=== PATIENT | female | born 1975 | race Caucasian/White ===

== ENCOUNTER 2019-06-19 10:57 | Outpatient (CLI) | payer OTHER, SELFPAY ==
[2019-06-21 12:48] LABS: FSH 149.9 mIU/mL (***)
== END 2019-06-19 10:58 | disposition home or self-care (01) ==
LOC: ANHLAB 11:00
PROVIDERS: Visit Provider Obstetrics & Gynecology
DX: Z78.0 Asymptomatic menopausal state (principal); N91.2 Amenorrhea, unspecified
CPT/HCPCS: 36415; 83001; 83002; 84443

== ENCOUNTER → 2019-07-24 10:27 | Outpatient (CLI) | payer OTHER, SELFPAY ==
--- NOTE | ~2019-07-24 | MM_ITS ---
EXAMINATION: MM screening edinson BI w re HISTORY: Screening mammogram TECHNIQUE: Craniocaudal and mediolateral oblique 3-D tomosynthesis images were obtained and synthetic 2-D images were generated. CAD analysis was submitted and interpreted. COMPARISON: 07/11/2018 BREAST PARENCHYMAL COMPOSITION: The breasts are heterogeneously dense, which may obscure small masses . FINDINGS: There is focal asymmetry superiorly in the left breast on MLO view. The right breast is sta ble without evidence for malignancy. IMPRESSION: 1. Focal left breast asymmetry superiorly. 2. Additional mammographic views and possible breast ultrasound are recommended. BI-RADS Category 0: Incomplete: Needs additional imaging evaluation. Reviewed, dictated and finalized at location A. IMPRESSION: 1. Focal left breast asymmetry superiorly. 2. Additional mammographic views and possible breast ultrasound are recommended . BI-RADS Category 0: Incomplete: Needs additional imaging evaluation.
== END ==
PROVIDERS: PCP Physician Assistant; Visit Provider Obstetrics & Gynecology
DX: Z12.31 Encounter for screening mammogram for malignant neoplasm of breast (principal); R92.8 Other abnormal and inconclusive findings on diagnostic imaging of breast
CPT/HCPCS: 77063; 77067

== ENCOUNTER → 2019-08-09 08:36 | Outpatient (CLI) | payer OTHER, SELFPAY ==
--- NOTE | ~2019-08-09 | MMUS_ITS ---
EXAMINATION: MM diagnostic mammo unilat LT, US breast LT complete HISTORY: Focal asymmetry reported in superior left breast on 07/24/2019 screening MLO view TECHNIQUE: Additional 3-D tomosynthesis images of the left breast were performed and synthetic 2-D im ages were generated. CAD analysis was submitted and interpreted. High resolution complete left breast ultrasound was performed. COMPARISON: 07/24/2019 bilateral digital screening mammogram BREAST PARENCHYMAL COMPOSITION: The breasts are heterogeneously dense, which may obscure small masses . FINDINGS: MAMMOGRAPHIC FINDINGS: No reproducible mass or architectural distortion, malignant calcification, skin thickening or retract ion of the left breast is evident. ULTRASOUND: There is no evidence of focal abnormal solid or cystic lesion or abnormal shadowing of the left breas t. IMPRESSION: 1. No mammographic evidence of malignancy 2. Routine annual mammographic screening is recommended BI-RADS Category 1: Negative Reviewed, dictated and finalized at location A. IMPRESSION: 1. No mammographic evidence of malignancy 2. Routine annual mammographic screening is recommended BI-RADS Category 1: Negative
== END ==
PROVIDERS: PCP Physician Assistant; Visit Provider Obstetrics & Gynecology
DX: R92.2 Inconclusive mammogram (principal)
CPT/HCPCS: 76641; 77065

== ENCOUNTER 2020-07-26 19:31 | Emergency (ER) | payer OTHER, SELFPAY ==
--- NOTE | 2020-07-26 19:44 | ED.FEMALEGU ---
HPI - Female Genitourinary General Chief complaint: Urogenital-Female Stated complaint: UTI Time Seen by Provider: 07/26/20 19:45 Source: patient and RN notes reviewed Mode of arrival: ambulatory Limitations: no limitations History of Present Illness HPI Narrative: 44-year-old female presents to the [facility] with complaints of frequency, urgency, burning that started this morning. Reports suprapubic abdominal pressure and spasming at the end of emptying her bladder. States it never feels like her bladder gets completely empty. No CVA tenderness. No chest pain. No generalized abdominal pain. No shortness of breath. Denies fevers. Related Data Allergies Allergy/AdvReac Type Severity Reaction Status Date / Time PROMETHAZINE HCL AdvReac Unknown JITTERY Uncoded 07/26/20 19:42 Review of Systems Review of Systems: Narrative: CONSTITUTIONAL: Denies fever, chills, or sweats. CARDIOVASCULAR: Denies chest pain, palpitations, or edema. RESPIRATORY: Denies cough or dyspnea. GASTROINTESTINAL: Denies abdominal pain, nausea, vomiting, or diarrhea. Reports suprapubic abdominal pressure GENITOURINARY: Reports frequency, urgency, burning with urination SKIN: Denies rash or itching. MUSCULOSKELETAL: Denies back pain, joint pain, or myalgia. NEUROLOGIC: Denies headache, numbness, or weakness. PSYCHIATRIC: Denies anxiety or depression. All other systems reviewed are negative, except as documented in HPI. PMFSH Comments At the time of my signature, I reviewed and agree with the nursing past medical, surgical, social, and family history. There is no relevant family history pertinent to the patient complaint. Exam Narrative: Exam Narrative: GENERAL: This is a well-nourished, well-developed patient, in no apparent distress. HEAD: normocephalic, atraumatic. EYES: PERRL. Sclera clear/white. Vision is grossly intact. EARS: External ears normal CARDIOVASCULAR: Regular rate and rhythm without murmurs, gallops, or rubs. RESPIRATORY: Clear to auscultation. Breath sounds equal bilaterally. No wheezes, rales, or rhonchi. GASTROINTESTINAL: Abdomen soft, non-tender, nondistended. SKIN: warm, intact with no suspicious lesions or rash, good texture and turgor. NEURO: awake, alert, and oriented to person, place and time. There were no obvious focal neurologic abnormalities. BACK: Nontender without deformity. No CVA tenderness. Course Vital Signs Vital signs: Vital Signs Temperature 97.9 F 07/26/20 19:48 Pulse Rate 71 07/26/20 19:48 Respiratory Rate 16 07/26/20 19:48 Blood Pressure 140/71 07/26/20 19:48 Pulse Oximetry 100 07/26/20 19:48 Temperature 97.9 F 07/26/20 19:48 Pulse Rate 71 07/26/20 19:48 Respiratory Rate 16 07/26/20 19:48 Blood Pressure 140/71 07/26/20 19:48 Pulse Oximetry 100 07/26/20 19:48 Reviewed MDM - Female Genitourinary MDM Narrative Medical decision making narrative: Discharge instructions reviewed with patient, as well as provided in writing per nursing staff. The instructions also include specific and strict return/GO TO THE ER as well as f/u information. All questions have been answered, and the patient deny any further questions with discharge and discharge plan. Differential Diagnosis Differential diagnosis: Likely urinary tract infection and cystitis Lab Data Labs: Urine Glucose Negative Reference Range: Negative Urine Bilirubin Negative Reference Range: Negative Urine Ketone Negative Reference Range: Negative Urine Specific [place] 1.020 Reference Range:1.001-1.035 Urine Blood 2+ Reference Range: Negative * *
[2020-07-26 19:48] VITALS: BP 140/71; PULSE 71; RESP 16; TEMP 36.6; O2SAT 100
== END 2020-07-26 19:57 | disposition home or self-care (01) ==
PROVIDERS: Emergency Provider Nurse Practitioner; PCP Physician Assistant
DX: N30.01 Acute cystitis with hematuria (principal)
CPT/HCPCS: 81003; 87077; 87086; 87088; 87186; 99213; G0463

== ENCOUNTER → 2020-08-21 17:07 | Outpatient (CLI) | payer OTHER, SELFPAY ==
--- NOTE | ~2020-08-21 | MM_ITS ---
EXAMINATION: MM screening edinson BI w re HISTORY: Screening mammogram TECHNIQUE: Craniocaudal and mediolateral oblique 3-D tomosynthesis images were obtained and synthetic 2-D images were generated. Bilateral rotated lateral CC views. .CAD analysis was submitted and inter preted. COMPARISON: 08/09/2019 diagnostic left digital mammogram and left complete breast ultrasound 07/24/2019, 07/11/2018 bilateral digital screening mammogram examinations BREAST PARENCHYMAL COMPOSITION: The breasts are heterogeneously dense, which may obscure small masses . FINDINGS: There is no evidence of suspicious mass, calcification, or architectural distortion to sugg est malignancy in either breast. There has been no suspicious interval change. IMPRESSION: 1. No mammographic evidence of malignancy. 2. Recommend routine screening mammography in one year. BI-RADS Category 1: Negative Reviewed, dictated and finalized at location A.
== END ==
PROVIDERS: PCP Physician Assistant; Visit Provider Obstetrics & Gynecology
DX: Z12.31 Encounter for screening mammogram for malignant neoplasm of breast (principal)
CPT/HCPCS: 77063; 77067

== ENCOUNTER 2021-08-26 09:14 | Outpatient (CLI) | payer OTHER, SELFPAY ==
[2021-08-29 08:22] LABS: FSH 148.1 mIU/mL (***); LH 55.1 mIU/mL (***)
== END 2021-08-26 09:15 | disposition home or self-care (01) ==
LOC: ANHLAB 09:21
PROVIDERS: PCP Physician Assistant; Visit Provider Physician Assistant
DX: N81.2 Incomplete uterovaginal prolapse (principal)
CPT/HCPCS: 36415; 83001; 83002

== ENCOUNTER 2021-09-30 09:45 | Outpatient (CLI) | payer OTHER, SELFPAY ==
--- NOTE | ~2021-09-30 | MM_ITS ---
EXAMINATION: MM screening edinson BI w re HISTORY: Screening mammogram TECHNIQUE: Craniocaudal and mediolateral oblique 3-D tomosynthesis images were obtained and synthetic bilateral rotated lateral CC views. Bilateral rotated lateral CC views. 2-D images were generated. C AD analysis was submitted and interpreted. COMPARISON: 08/21/2020 bilateral screening mammogram /07/2019 diagnostic left mammogram and complete left breast ultrasound 07/24/2019, 3 subsequent 2011 bilateral screening mammogram examinations BREAST PARENCHYMAL COMPOSITION: The breasts are heterogeneously dense, which may obscure small masses . FINDINGS: There is no evidence of suspicious mass, calcification, or architectural distortion to sugg est malignancy in either breast. There has been no suspicious interval change. IMPRESSION: 1. No mammographic evidence of malignancy. 2. Recommend routine screening mammography in one year. BI-RADS Category 1: Negative Reviewed, dictated and finalized at location A.
== END 2021-09-30 09:46 | disposition home or self-care (01) ==
PROVIDERS: PCP Physician Assistant; Visit Provider Physician Assistant
DX: Z12.31 Encounter for screening mammogram for malignant neoplasm of breast (principal)
CPT/HCPCS: 77063; 77067

== ENCOUNTER 2021-10-26 14:53 | Outpatient (CLI) | payer OTHER, SELFPAY ==
--- NOTE | ~2021-10-26 | US_ITS ---
EXAMINATION: US pelvic complete DATE: 10/26/2021 15:54 INDICATION: Postmenopausal bleeding. TECHNIQUE: Multiple transabdominal sonographic images of the pelvis were obtained. COMPARISON: None. FINDINGS: The uterus measures 5.7 x 2.4 x 4.0 cm. There is no free fluid in the pelvis. The endometrial complex measures 3 mm in thickness. The right ovary measures 1.9 x 1.3 x 1.6 cm. The left ovary measures 2.5 x 2.1 x 1.3 cm. There is normal vascular flow in the ovaries. IMPRESSION: 1. Normal pelvis. Reviewed, dictated and finalized at location A. IMPRESSION: 1. Normal pelvis.
== END 2021-10-26 14:54 | disposition home or self-care (01) ==
PROVIDERS: PCP Physician Assistant; Visit Provider Physician Assistant
DX: N95.0 Postmenopausal bleeding (principal)
CPT/HCPCS: 76856

== ENCOUNTER 2022-05-20 14:57 | Outpatient (CLI) | payer OTHER, SELFPAY ==
[2022-05-20 15:30] LABS: Basophils Percent Auto 0.4 % (0.2-1.2); Eosinophils Absolute Auto 0.1 K/mm3 (0-0.3); Eosinophils Percent Auto 2.2 % (0-4.4); Hematocrit 41.3 % (37.0-47.0); Hemoglobin 13.4 g/dL (12.0-15.0); Immature Granulocyte Absolute 0.01 K/mm3 (0.00-0.031); Immature Granulocyte Percent A 0.2 % (0-0.5); Lymphocytes Absolute Auto 1.37 K/mm3 (0.9-3.2); Lymphocytes Percent Auto 29.7 % (18.3-44.2); Mean Corpuscular HGB Conc 32.4 g/dl (32-36); Mean Corpuscular Hemoglobin 29.3 pg (26-34); Mean Corpuscular Volume 90.2 fl (80-100); Mean Platelet Volume 11.3 fl (7.4-10.4); Monocytes Absolute Auto 0.4 K/mm3 (0.1-0.6); Monocytes Percent Auto 9.1 % (2.6-8.5); Neutrophils Absolute Auto 2.7 K/mm3 (1.3-6.7); Neutrophils Percent Auto 58.4 % (45.5-73.1); Platelet Count Result 234 k/mm3 (150-375); Red Blood Count 4.58 M/mm3 (4.2-5.4); Red Cell Distribution Width 12.5 % (11.5-14.5); White Blood Count 4.6 K/mm3 (4.5-10.0)
[2022-05-22 05:26] LABS: Alanine Aminotransferase 23 U/L (6-35); Albumin Level 4.9 g/dL (3.5-5.1); Alkaline Phosphatase 74 U/L (38-126); Anion Gap 5 mmol/L (8-16); Aspartate Amino Transferase 29 U/L (14-36); Bilirubin,Total 0.4 mg/dL (0.2-1.3); Blood Urea Nitrogen 13 mg/dL (7-17); Calcium 8.8 mg/dL (8.4-10.2); Carbon Dioxide 30 mmol/L (22-30); Chloride 102 mmol/L (98-107); Cholesterol 238 mg/dL (0-200); Estimated Glomerular Filt Rate > 60; Glucose 101 mg/dL (65-110); HDL Direct 48 mg/dL; Potassium 4.1 mmol/L (3.4-5.0); Sodium 137 mmol/L (137-145); Triglycerides 98 mg/dL (<150)
[2022-05-22 05:38] LABS: LDL Cholesterol Direct 128 mg/dL
[2022-05-22 06:01] LABS: Thyroid Stimulating Hormone 0.891 uIU/mL (0.465-4.680)
[2022-05-24 09:11] LABS: Tissue Transglutaminase IgA Ab <1.0 U/mL (<15.0)
[2022-06-02 15:23] LABS: Gliadin Gluten IgA <1.0 U/mL
== END 2022-05-20 14:58 | disposition home or self-care (01) ==
PROVIDERS: PCP Physician Assistant; Visit Provider Physician Assistant
DX: R19.7 Diarrhea, unspecified (principal); E78.2 Mixed hyperlipidemia; R53.83 Other fatigue
CPT/HCPCS: 36415; 80053; 80061; 83516; 84443; 85025

== ENCOUNTER 2022-11-21 03:26 | Day surgery (SDC) | payer OTHER, SELFPAY ==
[2022-11-10 13:27] VITALS: BMI 26.9
[2022-11-21 07:43] VITALS: BP 116/72; PULSE 84; RESP 18; TEMP 36.6; O2SAT 100; BMI 26.2
[2022-11-21] MEDS: LACTATED RINGERS 1,000 ML 150 ML IV CONT (08:03)
--- NOTE | 2022-11-21 08:33 | WPDANESEPPF ---
Anes - Initial Pre Proc Eval Procedure: Operation Date: 11/21/22 09:00 Proposed Procedures p Screening Colonoscopy - Geoffrey Larsen MD Date/Time: 11/21/22 08:33 Surgeon: Geoffrey Larsen MD Pre Op Diagnosis: neoplasm screening Patient Data Age: 46 Gender: F Height: 1.7 m Weight: 76.1 kg Last Vital Signs Temp 97.8 F 11/21/22 07:43 Pulse 84 11/21/22 07:43 Resp 18 11/21/22 07:43 BP 116/72 11/21/22 07:43 Pulse Ox 100 11/21/22 07:43 O2 Del Method Room Air 11/21/22 07:43 Allergies Allergy/AdvReac Type Severity Reaction Status Date / Time PROMETHAZINE HCL AdvReac Unknown JITTERY Uncoded 11/21/22 07:43 Home Medications Medication Instructions Recorded Confirmed Type coenzyme Q10 75 mg capsule (Ultra 75 mg PO DAILY 11/10/22 11/10/22 History CoQ10) [id number] 200 1 tablet PO DAILY 11/10/22 11/10/22 History mg-biotin 450 mcg-vit D3 400 unit-FA tablet Patient hx anesthesia problems: none Family hx anesthesia problems: none Results Review: All pre-operative results and documents have been reviewed as part of the pre-operative evaluation. [facility] Social History Social History Smoking status: Never smoker Alcohol intake: never Substance use type: does not use Living arrangements: with family Spiritual care concerns: No Anes - Eval Final PreProcedure Day of Procedure 11/21/22 08:33 Patient weight: normal Heart: regular rate and rhythm Lungs: clear to auscultation Airway: Mallampati scale class II Neurological: alert and oriented Last oral intake: >/= 8 hours ASA classification: II Emergent: no Anesthetic plan: proceed Anesthesia type and monitoring: general GIVS and standard monitoring Results Review: All pre-operative results and documents have been reviewed as part of the pre-operative evaluation. Informed Consent: The patient's anesthetic plan and its attendant risks and benefits were discussed with the patient/family/POA. Questions were solicited and answers provided to the satisfaction of the patient/family/POA.
--- NOTE | 2022-11-21 08:37 | PM.HPGS ---
History of Present Illness History of Present Illness Consent: Risks, benefits, and alternatives have been discussed and questions answered. Patient agrees to proceed with procedure. Chief complaint: neoplasm screening Narrative: Sharon Martines is a 46 year old female here for first screening colonoscopy Review of Systems Constitutional: Constitutional: Denies headache(s) and Denies weakness Eyes: Eyes: Denies blurry vision ENT: Reports Normal hearing present, Denies headache(s) and Denies neck pain Cardiovascular: Cardiovascular: Denies chest pain and Denies dyspnea Respiratory: Respiratory: Denies dyspnea Gastrointestinal: Gastrointestinal: Reports no additional gastrointestinal complaints Genitourinary: Genitourinary: Denies dysuria Musculoskeletal: Musculoskeletal: Denies neck pain Integumentary/Breasts: Skin/Breast: Denies dry skin Neurologic: Reports Normal hearing present, Denies headache(s) and Denies weakness Psychiatric: Psychiatric: Denies anxiety Endocrine: Endocrine: Denies change in body appearance Hematologic/Lymphatic: Hematologic/Lymphatic: Denies easy bleeding Allergic/Immunologic: Allergic/Immunologic: Denies urticaria [facility] Past Medical History Medical History (Updated 11/21/22 @ 08:38 by Geoffrey Larsen MD) Colon cancer screening Social History Social History Smoking status: Never smoker Alcohol intake: never Substance use type: does not use Living arrangements: with family Spiritual care concerns: No Meds Home Medications and Allergies Home Medications Medication Instructions Recorded Confirmed Type coenzyme Q10 75 mg capsule (Ultra 75 mg PO DAILY 11/10/22 11/10/22 History CoQ10) [id number]-zugg-vyhlzcl 200 1 tablet PO DAILY 11/10/22 11/10/22 History mg-biotin 450 mcg-vit D3 400 unit-FA tablet Allergies Allergy/AdvReac Type Severity Reaction Status Date / Time PROMETHAZINE HCL AdvReac Unknown JITTERY Uncoded 11/21/22 07:43 Vital Signs Vital Signs - 24 hr 11/21/22 07:43 Temperature 97.8 F Pulse Rate 84 Respiratory Rate 18 Blood Pressure 116/72 Pulse Oximetry 100 Oxygen Delivery Room Air Exam Const: General: comfortable and no acute distress HENMT: Face/Nose/Sinus: Normal nares present Eyes: General: appearance normal, both eyes and all related structures Neck: Neck: no JVD Resp: Auscultation: clear to auscultation bilaterally Cardio: Rate: regular rate Rhythm: regular rhythm GI: Inspection: non-distended GI Palp: Yes Soft to palpation Skin: General skin exam: normal color Neuro: General: gait normal Speech: normal speech Extrem: General: normal to inspection Psych: Mental Status: mental status grossly normal Assessment and Plan Assessment and plan (1) Colon cancer screening: Code(s): Z12.11 - Encounter for screening for malignant neoplasm of colon Status: Acute Assessment and Plan: colonoscopy
[2022-11-21 08:58] VITALS: BP 96/57; PULSE 82; RESP 17; O2SAT 100
[2022-11-21 09:08] VITALS: BP 103/58; PULSE 74; RESP 17; O2SAT 99
[2022-11-21 09:18] VITALS: BP 102/66; PULSE 71; RESP 17; O2SAT 99
== END 2022-11-21 09:30 | disposition home or self-care (01) ==
PROVIDERS: PCP Physician Assistant; Visit Provider Internal Medicine Gastroenterology
PROC: 0DJD8ZZ Inspection of Lower Intestinal Tract, Via Natural or Artificial Opening Endoscopic (ICD-10-PCS; CPT 45378; principal; 2022-11-21 09:00)
DX: Z12.11 Encounter for screening for malignant neoplasm of colon (principal)
CPT/HCPCS: 45378; J2704; J7120

== ENCOUNTER 2022-12-22 13:47 | Outpatient (CLI) | payer OTHER, SELFPAY ==
--- NOTE | ~2022-12-22 | DEXA_ITS ---
Bone Density Report Name: HARIS HUNT Age: 46 Sex: Female Ethnicity: White Date of : 1975 Indication: postmenopausal; inflammatory bowel disease; Referring Provider: [email or web address] Study: Bone densitometry was performed. Exam Date: December 22, 2022 Accession number: [id number] Bone Density: Region BMD T-score Z-score Classification AP Spine(L1-L4) 0.836 -1.9 -1.4 Osteopenia Femoral Neck (Left) 0.701 -1.3 -0.9 Osteopenia Total Hip (Left) 0.825 -1.0 -0.6 Normal Femoral Neck (Right) 0.670 -1.6 -1.1 Osteopenia Total Hip (Right) 0.767 -1.4 -1.1 Osteopenia Total Hip Mean 0.796 -1.2 -0.9 Osteopenia World Health Organization criteria for BMD impression classify patients as: Normal (T-score at or above -1.0), Osteopenia (T-score between -1.0 and -2.5), or Osteoporosis (T-score at or below -2.5). 10-year Fracture Risk(1): Major Osteoporotic Fracture 3.5% Hip Fracture 0.3% Reported Risk Factors: [place] (), Neck BMD=0.670, BMI=26.9 (1) FRAX(R) Version 3.08. Fracture probability calculated for an untreated patient. Fracture probability may be lower if the patient has received treatment. Clinical Information Provided by Patient: Has used the following medications: Vitamin D, Calcium Has the following medical conditions: Inflammatory bowel diseases Patient maximum height was 67 Menopause Age: 45 Drinks caffeinated beverages Onset of menses at age 13 Number of children 2 Impression: The patient has low bone mass, based on the Total Spine T-score. The patient has an estimated ten-year risk of hip fracture of 0.3% and an estimated ten-year risk of major fracture of 3.5%, based on the WHO FRAX algorithm. Discussion: BONE DENSITY IS LOW AT ONE OR MORE SKELETAL SITES. This patient's lowest T-score is low at one or more skeletal sites. It meets the World Health Organization's (WHO) criteria for ?low bone mass? (T-score between -1.0 and -2.5). The patient's 10-year risk of fracture as calculated by FRAX is less than the threshold where pharmacological therapy is recommended by the National Osteoporosis Foundation (NOF). However, all treatment decisions require clinical judgment and consideration of individual patient factors, including patient preferences, comorbidities, previous drug use, risk factors not captured in the FRAX model (e.g., frailty, falls, vitamin D deficiency, increased bone turnover, interval significant decline in bone density) and possible under or overestimation of fracture risk by FRAX. The patient should follow a healthful lifestyle (good nutrition with adequate calcium and vitamin D, and appropriate weight-bearing exercise). Follow-Up: Consider repeating this study in 2 to 3 years to reassess this patient's status, or sooner if there is some new clinical indic
--- NOTE | ~2022-12-22 | MM_ITS ---
EXAMINATION: MM screening edinson BI w re HISTORY: Screening TECHNIQUE: Craniocaudal and mediolateral oblique 3-D tomosynthesis images were obtained and synthetic 2-D images were generated. CAD analysis was submitted and interpreted. COMPARISON: Comparison to multiple prior studies sequentially, with oldest reviewed study dated 10/2018. BREAST PARENCHYMAL COMPOSITION: The breasts are heterogeneously dense, which may obscure small masses . FINDINGS: There is no evidence of suspicious mass, calcification, or architectural distortion to sugg est malignancy in either breast. There has been no suspicious interval change. IMPRESSION: 1. No mammographic evidence of malignancy. 2. Recommend routine screening mammography in one year. BI-RADS Category 1: Negative Reviewed, dictated and finalized at location A.
== END 2022-12-22 13:48 | disposition home or self-care (01) ==
PROVIDERS: PCP Physician Assistant; Visit Provider Physician Assistant
DX: Z12.31 Encounter for screening mammogram for malignant neoplasm of breast (principal); Z87.39 Personal history of other diseases of the musculoskeletal system and connective tissue; Z78.0 Asymptomatic menopausal state; M85.88 Other specified disorders of bone density and structure, other site; M85.852 Other specified disorders of bone density and structure, left thigh; M85.851 Other specified disorders of bone density and structure, right thigh
CPT/HCPCS: 77063; 77067; 77080

== ENCOUNTER 2023-07-15 15:12 | Emergency (ER) | payer OTHER, SELFPAY ==
--- NOTE | ~2023-07-15 | XR_ITS ---
EXAMINATION: XR foot RT min 3V DATE: 07/15/2023 15:29 INDICATION: Right foot injury and pain. TECHNIQUE: 4 views of right foot were obtained. COMPARISON: None. FINDINGS: Bone alignment is normal. No fracture. 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 IMPRESSION: 1. No fracture. Reviewed, dictated and finalized at location E. 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 No fracture.
--- NOTE | 2023-07-15 15:17 | ED.LOWEXIN ---
HPI - Extremity Injury (Lower) General Chief Complaint: Extremity Injury, Lower Stated Complaint: Toe Pain Rt Foot Time Seen by Provider: 07/15/23 15:17 Source: patient Mode of arrival: ambulatory Limitations: no limitations History of Present Illness HPI Narrative: Patient is a 47-year-old female who presents with right middle toe pain for 2 weeks. Patient states she stubbed it on a wooden door and it is still painful, and has mild bruising. Patient still able walk normally. Denies any swelling, numbness or tingling. Related Data Home Medications Medication Instructions Recorded Confirmed coenzyme Q10 75 mg capsule (Ultra 75 mg PO DAILY 11/10/22 07/15/23 CoQ10) dhdxwznc-ndai-vdzcyzs 200 1 tablet PO DAILY 11/10/22 07/15/23 mg-biotin 450 mcg-vit D3 400 unit-FA tablet Allergies Allergy/AdvReac Type Severity Reaction Status Date / Time PROMETHAZINE HCL AdvReac Intermediate JITTERY Uncoded 07/15/23 15:17 Review of Systems Review of Systems: All systems reviewed & are unremarkable except as noted in HPI and below Constitutional: Constitutional: Denies body ache(s), Denies chills, Denies fatigue, Denies fever(s), Denies headache(s), Denies malaise and Denies weakness Eyes: Eyes: Denies blurry vision, Denies irritation and Denies loss of vision ENT: Denies otalgia, Denies headache(s), Denies nasal discharge, Denies sinus pain and Denies sore throat Cardiovascular: Cardiovascular: Denies chest pain, Denies irregular heart rhythm and Denies dyspnea Respiratory: Respiratory: Denies dyspnea Gastrointestinal: Gastrointestinal: Denies abdominal pain, Denies melena, Denies hematochezia, Denies diarrhea, Denies nausea and Denies vomiting Musculoskeletal: Musculoskeletal: Denies back pain, Denies myalgias and Reports arthralgias Integumentary/Breasts: Skin/Breast: Denies pruritus and Denies rash Neurologic: Denies headache(s), Denies loss of vision and Denies weakness Psychiatric: Psychiatric: Reports no additional psychiatric complaints Endocrine: Endocrine: Denies fatigue PMFSH Past Medical History Medical History Colon cancer screening Social History Social History Smoking status: Never smoker Alcohol intake: never Substance use type: does not use Living arrangements: with family Spiritual care concerns: No Comments At time of signature, agree with nursing past medical, surgical, social and family history. There is no relevant family history pertinent to the presenting complaint. Exam Const: General: cooperative, healthy appearing, comfortable, no acute distress and well nourished Nutritional Appearance: well nourished Orientation/consciousness: patient oriented x3 Limitations: no limitations HENMT: Head: normal to inspection, normocephalic and atraumatic Ears: hearing grossly normal bilaterally and external ears normal Face/Nose/Sinus: Normal external nose present, normal facial exam and face symmetric Face and sinus: normal facial exam and face symmetric Mouth: Yes lip normal Eyes: General: appearance normal, both eyes and all related structures Alignment and Position: alignment normal and position normal Periorbital: periorbital findings normal Eyelids: eyelids normal Pupils: Equal, round and reactive pupils present EOM: EOMs intact bilaterally Neck: Neck: normal visual inspection, full ROM and supple Chest: Chest palpation & inspection: normal inspection of the chest Resp: Effort & Inspection: normal respiratory effort and able to speak in complete sentences Auscultation: clear to auscultation bilaterally Cardio: Rate: regular rate Rhythm: regular rhythm Heart sounds: S1 normal heart sound present and S2 normal heart sound present GI: Inspection: normal to inspection Skin: General skin exam: normal color and no rashes or lesions noted Neuro: General: patie
[2023-07-15 15:20] VITALS: BP 129/81; PULSE 76; RESP 16; TEMP 36.6; O2SAT 100
== END 2023-07-15 15:53 | disposition home or self-care (01) ==
PROVIDERS: Emergency Provider Nurse Practitioner Family; PCP Physician Assistant
DX: S93.504A Unspecified sprain of right lesser toe(s), initial encounter (principal); W22.8XXA Striking against or struck by other objects, initial encounter
CPT/HCPCS: 73630; 99213; G0463

== ENCOUNTER 2023-09-05 08:19 | Outpatient (NON) | payer OTHER, SELFPAY ==
[2023-09-05 08:30] LABS: Alanine Aminotransferase 17 U/L (6-35); Albumin Level 4.6 g/dL (3.5-5.1); Alkaline Phosphatase 69 U/L (38-126); Anion Gap 6 mmol/L (4-12); Aspartate Amino Transferase 28 U/L (14-36); Bilirubin,Total 0.5 mg/dL (0.2-1.3); Blood Urea Nitrogen 19 mg/dL (7-17); Calcium 9.5 mg/dL (8.4-10.2); Carbon Dioxide 28 mmol/L (22-30); Chloride 105 mmol/L (98-107); Cholesterol 218 mg/dL (0-200); Estimated Glomerular Filt Rate > 60; Glucose 100 mg/dL (65-110); HDL Direct 44 mg/dL; Hemoglobin A1C 5.4 % (<5.7); LDL Cholesterol Direct 127 mg/dL; Sodium 139 mmol/L (137-145); Triglycerides 137 mg/dL (<150)
[2023-09-05 08:31] LABS: Basophils Percent Auto 0.2 % (0.2-1.2); Eosinophils Absolute Auto 0.1 K/mm3 (0-0.3); Eosinophils Percent Auto 3.2 % (0-4.4); Hematocrit 42.9 % (37.0-47.0); Hemoglobin 13.6 g/dL (12.0-15.0); Immature Granulocyte Absolute 0.01 K/mm3 (0.00-0.031); Immature Granulocyte Percent A 0.2 % (0-0.5); Lymphocytes Absolute Auto 1.46 K/mm3 (0.9-3.2); Lymphocytes Percent Auto 36.4 % (18.3-44.2); Mean Corpuscular HGB Conc 31.7 g/dl (32-36); Mean Corpuscular Volume 91.5 fl (80-100); Mean Platelet Volume 11.4 fl (7.4-10.4); Monocytes Absolute Auto 0.4 K/mm3 (0.1-0.6); Platelet Count Result 234 k/mm3 (150-375); Red Blood Count 4.69 M/mm3 (4.2-5.4); Red Cell Distribution Width 12.6 % (11.5-14.5)
[2023-09-05 09:10] LABS: Thyroid Stimulating Hormone 0.997 uIU/mL (0.465-4.680)
== END 2023-09-05 08:20 | disposition home or self-care (01) ==
LOC: ANHLAB 08:21
PROVIDERS: PCP Physician Assistant; Visit Provider Physician Assistant
DX: R53.83 Other fatigue (principal); E78.2 Mixed hyperlipidemia; Z13.1 Encounter for screening for diabetes mellitus
CPT/HCPCS: 36415; 80053; 80061; 82607; 83036; 84443; 85025

== ENCOUNTER 2023-11-10 11:17 | Outpatient (CLI) | payer OTHER, SELFPAY ==
[2023-11-10 11:32] LABS: Alanine Aminotransferase 20 U/L (6-35); Albumin Level 4.7 g/dL (3.5-5.1); Alkaline Phosphatase 71 U/L (38-126); Anion Gap 4 mmol/L (4-12); Aspartate Amino Transferase 30 U/L (14-36); Bilirubin,Total 0.5 mg/dL (0.2-1.3); Blood Urea Nitrogen 12 mg/dL (7-17); Calcium 9.2 mg/dL (8.4-10.2); Carbon Dioxide 30 mmol/L (22-30); Chloride 106 mmol/L (98-107); Estimated Glomerular Filt Rate > 60; Glucose 99 mg/dL (65-110); Potassium 4.1 mmol/L (3.4-5.0); Sodium 140 mmol/L (137-145)
== END 2023-11-10 11:18 | disposition home or self-care (01) ==
LOC: ANHLAB 11:21
PROVIDERS: PCP Physician Assistant; Visit Provider Physician Assistant
DX: R53.83 Other fatigue (principal)
CPT/HCPCS: 36415; 80053

== ENCOUNTER 2023-12-26 15:02 | Outpatient (CLI) | payer OTHER, SELFPAY ==
--- NOTE | ~2023-12-26 | MM_ITS ---
EXAMINATION: MM screening edinson BI w re HISTORY: Screening TECHNIQUE: Craniocaudal and mediolateral oblique 3-D tomosynthesis images were obtained and synthetic 2-D images were generated. CAD analysis was submitted and interpreted. COMPARISON: Comparison to multiple prior studies sequentially, with oldest reviewed study dated 10/2018. BREAST PARENCHYMAL COMPOSITION: Dense: The breasts are heterogeneously dense, which may obscure small masses FINDINGS: There is no evidence of suspicious mass, calcification, or architectural distortion to sugg est malignancy in either breast. There has been no suspicious interval change. IMPRESSION: 1. No mammographic evidence of malignancy. 2. Recommend routine screening mammography in one year. BI-RADS Category 1: Negative Reviewed, dictated and finalized at location B.
== END 2023-12-26 15:03 | disposition home or self-care (01) ==
LOC: ANHIMG 15:03
PROVIDERS: PCP Physician Assistant; Visit Provider Physician Assistant
DX: Z12.31 Encounter for screening mammogram for malignant neoplasm of breast (principal)
CPT/HCPCS: 77063; 77067

== ENCOUNTER 2024-12-31 13:46 | Outpatient (CLI) | payer OTHER, SELFPAY ==
--- NOTE | ~2024-12-31 | DEXA_ITS ---
Bone Density Report Name: HARIS HUNT Age: 49 Sex: Female Ethnicity: White Date of : 1975 Indication: postmenopausal; inflammatory bowel disease; Referring Provider: RADHA, GUIDO Study: Bone densitometry was performed. Exam Date: December 31, 2024 Accession number: [id number] Bone Density: Region BMD T-score Z-score Classification AP Spine(L1-L4) 0.785 -2.4 -1.8 Osteopenia Femoral Neck (Left) 0.672 -1.6 -1.0 Osteopenia Total Hip (Left) 0.792 -1.2 -0.8 Osteopenia Femoral Neck (Right) 0.639 -1.9 -1.3 Osteopenia Total Hip (Right) 0.738 -1.7 -1.3 Osteopenia Total Hip Mean 0.765 -1.5 -1.1 Osteopenia World Health Organization criteria for BMD impression classify patients as: Normal (T-score at or above -1.0), Osteopenia (T-score between -1.0 and -2.5), or Osteoporosis (T-score at or below -2.5). 10-year Fracture Risk(1): Major Osteoporotic Fracture 4.4% Hip Fracture 0.5% Reported Risk Factors: [place] (), Neck BMD=0.639, BMI=26.5 (1) FRAX(R) Version 3.08. Fracture probability calculated for an untreated patient. Fracture probability may be lower if the patient has received treatment. Clinical Information Provided by Patient: Has used the following medications: Vitamin D, Calcium Has the following medical conditions: Inflammatory bowel diseases Patient maximum height was 67 Menopause Age: 45 Does not regularly consume dairy products Drinks caffeinated beverages Onset of menses at age 13 Number of children 2 Impression: The patient has low bone mass, based on the Total Spine T-score. The patient has an estimated ten-year risk of hip fracture of 0.5% and an estimated ten-year risk of major fracture of 4.4%, based on the WHO FRAX algorithm. Discussion: BONE DENSITY IS LOW AT ONE OR MORE SKELETAL SITES. This patient's lowest T-score is low at one or more skeletal sites. It meets the World Health Organization's (WHO) criteria for ?low bone mass? (T-score between -1.0 and -2.5). The patient's 10-year risk of fracture as calculated by FRAX is less than the threshold where pharmacological therapy is recommended by the National Osteoporosis Foundation (NOF). However, all treatment decisions require clinical judgment and consideration of individual patient factors, including patient preferences, comorbidities, previous drug use, risk factors not captured in the FRAX model (e.g., frailty, falls, vitamin D deficiency, increased bone turnover, interval significant decline in bone density) and possible under or overestimation of fracture risk by FRAX. The patient should follow a healthful lifestyle (good nutrition with adequate calcium and vitamin D, and appropriate weight-bearing exercise). Follow-Up: Consider repeating this study in 2 to 3 years to reassess this patient's status, or sooner if there is some new clinical indication. Reported by: ANAIS on 12/31/2024 2:31:00 PM. Reviewed, dictated and finalized at location A.
--- OUTSIDE RECORDS SUMMARY | 2024-12-31 13:52 | XMS_ITS | Clinical Summary ---
Author Organization [facility] [address] Address [address] [place] [address] Care Team Providers Care Media Producer Name Role Phone Angela Grissom Primary Care Provider +1- [phone] Allergies Active Allergy Reactions Criticality Noted Date Comments Promethazine Agitation Low 07/31/2019 Medications coenzyme Q10 200 mg capsule Take 1 capsule (200 mg total) by mouth daily Active cholecalciferol (VITAMIN D-3) 5,000 unit capsule Take 1 capsule (5,000 Units total) by mouth daily Active rosuvastatin (CRESTOR) 10 mg tabletIndications:M ixed hyperlipidemia TAKE 1 TABLET(10 MG) BY MOUTH DAILY 90 tablet 1 4 Active calcium carbonate (OS-BRIAN) 650 mg (260 mg elemental) tablet,chewable 260 mg Acti ve venlafaxine XR (EFFEXOR-XR) 37.5 mg 24 hr capsule Take 1 capsule (37.5 mg total) by mouth daily 30 capsule 5 12/13/19 26 Active dicyclomine (BENTYL) 10 mg capsule Take 1 capsule (10 mg total) by mouth 4 (four) times a day before meals and nightly 60 capsule 5 Active venlafaxine XR (EFFEXOR-XR) 75 mg 24 hr capsule Take 1 capsule (75 mg total) by mouth daily Take with food. Start after the 37.5 dose/rx 90 capsule 5 Active Active Problems Problem Noted Date Diagnosed Date Family history of pulmonary embolism 12/12/2024 Overview (12/12/2024): Father has Factor V Leiden and had multiple DVT/PE at 70yo. Vasomotor symptoms due to menopause 12/12/2024 Frequent headaches 09/02/2024 History of loop electrical excision procedure (L EEP) 08/31/2023 Overview (08/31/2023): [address] Cruz Assessment & Plan (08/31/2023 8:14 AM CDT): History of LEEP by Dr. Cruz in 2013. Unsure of the pathology. Recommend continuing to repack every couple of years Osteopenia of ankle 10/20/2022 Overview (10/20/2022): Had Health fair screening and ankle was (-2.0) Colon cancer screening 08/29/2022 Assessment & Plan (08/29/2022 6:40 PM CDT): Discussed colon cancer screening options. Prefers colonoscopy done at [employer] as she is employed there. Referral placed to Dr. Lyle Howard Irritable bowel syndrome with diarrhea Assessment & Plan (08/29/2022 6:40 PM CDT): Patient started doing FODMAP diet last year indefinitely can see improvement in her symptoms. Dairy cold oatmeal some yogurts are definitely triggers she continues to identify others and if she avoids them she does pretty well. Wants to continue to monitor Abdominal bloating 06/06/2022 Assessment & Plan (06/06/2022 9:21 AM FULL TIME PARAMEDIC): Persistent abdominal bloating gas and sometimes pain. This comes and goes. Symptoms seem most consistent with an IBS. Discussed FODMAP diet at length and provided handouts. Encouraged to try to identify her food triggers and avoid them to see if her symptoms resolve or improve. If they worsen can always consider referral to GI. She is refusing colonoscopy at this point for colon cancer screening. Will discuss at her next visit. BMI 26.0-26.9,adult 08/26/2021 Assessment & Plan (12/12/2024 7:16 AM CDT): Weight/BMI is in healthy range. Continue healthy lifestyle to maintain. Assessment & Plan (09/02/2024 7:08 AM CDT): Weight/BMI is in healthy range. Continue healthy lifestyle to maintain. Assessment & Plan (08/31/2023 8:15 AM CDT): Weight/BMI is in healthy range. Continue healthy lifestyle to maintain. Assessment & Plan (08/29/2022 7:22 AM CDT): Weight/BMI is in healthy range. Continue healthy lifestyle to maintain. Assessment & Plan (06/06/2022 9:22 AM FULL TIME PARAMEDIC): Weight/BMI is in healthy range. Continue healthy lifestyle to maintain. Assessment & Plan (08/26/2021 7:56 AM CDT): Weight/BMI is in healthy range. Continue healthy lifestyle to maintain. Mixed hyperlipidemia 08/26/2021 Assessment & Plan (08/31/2023 8:15 AM CDT): Encouraged patient to follow low fat/low chol diet like the Mediterranean diet. Increase good fats in the diet. Increase exercise. Monitor labs as needed. Assessment & Plan (06/06/2022 9:20 AM FULL TIME PARAMEDIC): Encouraged patient to follow low fat/low chol diet like the Mediterranean diet. Increase good fats in the diet. Increase exercise. Monitor labs as needed. Discussed starting a statin. She is already on Co Q10. Reassess labs again in a year and if still elevated will initiate Crestor Assessment & Plan (08/26/2021 9:28 AM CDT): Encouraged patient to follow low fat/low chol diet like the Mediterranean diet. Increase good fats in the diet. Increase exercise. Monitor labs as needed. The labs are stable since last year. LDL is still about 130 but this appears to be a genetically where she will run. Reviewed that her 10 year CV risk is less than 1% but that the LDL is an independent risk factor. Discussed statin verses monitoring. She prefers to stay off medication. Can try Co Q10 and will recheck labs in a year. Amenorrhea 08/26/2021 Assessment & Plan (08/26/2021 9:30 AM CDT): This is a significant, separately identifiable problem that was evaluated and managed on the same day as the wellness exam Patient is amenorrheic for 13 months and FSH during that time was 150. 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 She states in the last year she has continued to have a. Or 2 that was a light flow but still of flow. She denies postcoital bleeding and last flow was last month. Will recheck FSH and LH to confirm menopause status. If consistent with menopause and Pap is normal will recommend ultrasound with possible operative hysteroscopy for further visualization to determine where the bleeding is originating. If Pap is abnormal will need follow-up based on her history of LEEP. She is in agreement and understanding of this plan. Fatigue 08/31/2020 Assessment & Plan (08/31/2023 8:15 AM CDT): Probably multifactorial. Check labs and followup to re-evaluate Assessment & Plan (08/31/2020 12:26 AM CDT): Probably multifactorial. Check labs and followup to re-evaluate Breast cancer screening by mammogram 08/31/2020 Assessment & Plan (08/31/2023 8:15 AM CDT): Check mammogram Assessment & Plan (08/29/2022 6:39 PM CDT): Mammogram order provided Assessment & Plan (08/26/2021 9:27 AM CDT): Mammogram order provided Assessment & Plan (08/31/2020 12:26 AM CDT): Mammogram order provided History of 2019 novel coronavirus disease (COVID -19) 08/20/2020 Menopause 07/31/2019 Assessment & Plan (08/31/2023 8:15 AM CDT): Patient states last period was in 2019. She is managing without significant vasomotor symptoms. Continue calcium vitamin-D and exercise. Will check a DEXA Assessment & Plan (07/31/2019 11:26 AM CDT): Discussed vasomotor treatment options including ERT vs gabpentin vs effexor. She will consider, but managing right now without medication. Resolved Problems Problem Noted Date Diagnosed Date Resolved Date Cervical cancer screening 08/31/2023 Assessment & Plan (08/31/2023 8:14 AM CDT): Pap obtained today with HPV. Follow-up pending results. Based on history of her LEEP would recommend a Pap every couple of years. Need for Tdap vaccination 08/31/2023 Assessment & Plan (08/31/2023 8:16 AM CDT): Tdap updated in the office today Encounter for routine gyneco logical examination with Papanicolaou smear of cervix 08/31/2023 09/02/2024 Assessment & Plan (08/31/2023 8:16 AM CDT): Encouraged healthy lifestyle, good nutrition and exercise. Encouraged Calcium and Vitamin D and weight bearing exercise for bone health. Reviewed immunizations Reviewed age appropirate screenings. Colon cancer screening declined 06/06/2022 08/29/2022 Assessment & Plan (06/06/2022 9:22 AM FULL TIME PARAMEDIC): Reviewed importance of colon cancer screening. Discussed the options for screening including colonoscopy versus Cologuard. She declined. Wants to discuss again at her next visit. Cervical cancer screening 08/26/2021 Assessment & Plan (08/26/2021 9:30 AM CDT): Pap obtained with discussion on routine follow-up. She has had history of a LEEP so has been doing annual exams. Her supervisor [employer] was Dr. Cruz Diabetes mellitus screening 08/31/2020 08/26/2021 Assessment & Plan (08/31/2020 12:26 AM CDT): Check labs Lipid screening 08/31/2020 08/26/2021 Assessment & Plan (08/31/2020 12:25 AM CDT): Check labs BMI 25.0-25.9,adult 08/20/2020 08/27/19 22 Assessment & Plan (08/20/2020 9:24 AM CDT): Weight/BMI is in healthy range. Continue healthy lifestyle to maintain. BMI 25.0-25.9,adult 07/31/2019 08/21/19 Assessment & Plan (07/31/2019 8:12 AM CDT): Weight/BMI is in healthy range. Continue healthy lifestyle to maintain. Annual physical exam 07/31/2019 025 Assessment & Plan (08/29/2022 6:39 PM CDT): Encouraged healthy lifestyle, good nutrition and exercise. Encouraged Calcium and Vitamin D and weight bearing exercise for bone health. Reviewed immunizations Reviewed age appropirate screenings. Assessment & Plan (06/06/2022 9:20 AM FULL TIME PARAMEDIC): Encouraged healthy lifestyle, good nutrition and exercise. Encouraged Calcium and Vitamin D and weight bearing exercise for bone health. Reviewed immunizations Reviewed age appropirate screenings. Assessment & Plan (08/26/2021 9:27 AM CDT): Encouraged healthy lifestyle, good nutrition and exercise. Encouraged Calcium and Vitamin D and weight bearing exercise for bone health. Reviewed immunizations Reviewed age appropirate screenings. Assessment & Plan (08/20/2020 8:54 AM CDT): Encouraged healthy lifestyle, good nutrition and exercise. Encouraged Calcium and Vitamin D and weight bearing exercise for bone health. Reviewed immunizations Reviewed age appropirate screenings. Assessment & Plan (07/31/2019 11:25 AM CDT): Encouraged healthy lifestyle, good nutrition and exercise. Encouraged Calcium and Vitamin D and weight bearing exercise for bone health. Reviewed immunizations Reviewed age appropirate screenings. Abnormal mammogram 07/31/2019 Assessment & Plan (07/31/2019 11:25 AM CDT): Ordered/managed by Dr. Cruz. Await results. Encounters Date Type Department Care Team Description 12/12/2024 7:00 AM CDT Office Visit [facility] [address] [address] Angela Grissom PA Vasomotor symptoms due to menopause (Primary Dx); Menopause; Family history of pulmonary embolism; Frequent headaches; Irritable bowel syndrome with diarrhea; BMI 26.0-26.9,adult from Last 3 Months Immunizations Immunization Administration Dates Next Due Influenza, Unspecified 05/08/2023(Deferr ed: Patient Refused),02/05/2022,05/08/2021(Deferred : Patient Refused),02/05/2021,02/05/2019 Pfizer SARS-CoV-2 Monovalent Vaccination (12+ Yrs) PURPLE 06/02/2020,05/12/2020 Tdap 08/31/2023,07/06/2013 Surgical History Surgery Date Site/Laterality Comments BREAST LUMPECTOMY Right Family History Medical History Relation Name Comments Arthritis Father Pulmonary embolism Father Diabetes Mother Hyperlipidemia Mother Hypertension Mother Arthritis Paternal Grandmother Relation Name Status Comments Father Mother Paternal Grandmother Social History Tobacco Use Types Packs/Day Years Used Date Smoking Tobacco: Never Passive Smoke Exposure: Never Smokeless Tobacco: Never Tobacco Cessation:Counseling Given: Not Answered Alcohol Use Standard Drinks/Week Comments Never 0 (1 standard drink = 0.6 oz pur e alcohol) AUDIT-C Answer Date Recorded Q1: How often do you have a drink containing alcohol? Never 12/12/2024 Q2: How many drinks containi ng alcohol do you have on a typical day when you are drinking? Patient does not drink Q3: How often do you have si x or more drinks on one occasion? 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- [employer] Not on file Not on file Not on file Obstetrics History Last Filed Vital Signs Vital Sign Reading Time Taken Comments Blood Pressure 110/86 12/12/2024 7:11 AM CDT Pulse 76 12/12/2024 7:11 AM CDT Temperature 36.8 C (98.2 F) 12/12/2024 7:11 AM CDT Respiratory Rate 18 06/06/2022 8:28 AM FULL TIME PARAMEDIC Oxygen Saturation 98% 12/12/2024 7:11 AM CDT Inhaled Oxygen Concentration - - Weight 76.2 kg (168 lb) 12/12/2024 7:11 AM CDT Height 170.2 cm (5' 7) 12/12/2024 7:11 AM CDT Body Mass Index 26.31 12/12/2024 7:11 AM CDT Plan of Treatment Health Maintenance Due Date Last Done Comments Hepatitis C Screening 1975 Hepatitis B Screening 1994 Covid-19 Vaccine ( season) 2024 06/02/2020, 05/12/2020 Breast Cancer Screening-Mammogram 12/25/2024 12/26/2023, 12/22/2022, 09/30/2021, Additional history exists Influenza Vaccine (#1) 2025 , 02/05/2022, 02/05/2021, Additional history exists Depression Screening 09/02/2025 09/02/2024, 08/31/2023, 08/29/2022, Additional history exists Regular Well Visit/Exam 18-64 09/02/2025 09/02/2024, 08/31/2023, 06/06/2022, Additional history exists Cervical Cancer Screening 08/30/2028 08/31/2023, Colon Cancer Screening-Colonoscopy 11/21/2032 11/21/2022 DTaP/Tdap/Td Vaccine (3 - Td or Tdap) 08/30/2033 08/31/2023, 07/06/2013 Pneumococcal vaccine <65 Aged Out No longer eligible based on patient's age to complete this topic Procedures Procedure Name Priority Date/Time Associated Diagnosis Comments SCREENING MAMMOGRAM BILATERAL W ZEYAD Schedule Routine, Read Routine (OP Routine) 12/26/2023 8:57 AM CDT Breast cancer screening by mammogram PAP AND HPV, REFLEX TO HPV GENOTYPES Routine 08/31/2023 8:26 AM CDT Cervical cancer screening HM COLONOSCOPY Routine 11/21/2022 10:14 AM CDT from Last 3 Months or Most Recently Relevant to Health Maintenance Results * Screening Mammogram Bilateral W Zeyad (12/26/2023 8:57 AM CDT) Anatomical Region Laterality Modality Breast Bilateral Mammography Impressions 12/26/2023 8:57 AM CDT Recommend routine screening mammography on one year BI-RADS Category 1: negative Angela CARPENTER IM MAMMO PROCEDURES Final Result * Pap and HPV, reflex to HPV Genotypes (08/31/2023 8:26 AM CDT) CLINICAL INFORMATION: [facility] Comment:CERVICAL CANCER SCRE ENING LMP [facility] Comment:TRACI SO APPX 2020 Previous Pap [facility] Comment:PREV NEG PAP Prev. Bx [facility] Comment:LEEP IN 2013 PAPS NO RMAL SINCE SOURCE: [facility] Comment:Cervix, Endocervix Pap, specimen adequacy [facility] Comment: Satisfactory for evaluation. Endocervical/transformation zone component present. HPV interp [facility] Comment: Cytology Results: Negative for intraepithelial lesion or malignancy. COMMENTS [facility] Comment: This Pap test has been evaluated with computer assisted technology. Paper Tester [facility] Comment: MVB, CT(ASCP) CT Screening Location: [place] [address] [place] [address] Comment [facility] Comment: EXPLANATORY NOTE: The Pap is a screening test for cervical cancer. It is not a diagnostic test and is subject to false negative and false positive results. It is most reliable when a satisfactory sample, regularly obtained, is submitted with relevant clinical findings and history, and when the Pap result is evaluated along with historic and current clinical information. Human papillomavirus DNA, High Risk E6/E7 Not Detected NOT DETECTED [facility]Maryuri Cordero [facility] Comment: Not Detected High Risk HPV types (16,18,31,33,35,39,45,51,52, 56,58,59,66,68) were not detected. Other HPV types which cause anogenital lesions may be present. The significance of the other types of HPV in malignant processes has not been established. Methodology: Real Time PCR Thin prep 08/31/2023 8:26 AM CDT 09/06/2023 11:48 AM CDT Angela CARPENTER LAB CYTOLOGY ORDERABLES Fi nal Result [facility] [address] [place] [address] [facility] [address] [place] [address] * HM COLONOSCOPY (11/21/2022 10:14 AM CDT) Historical Provider HEALTH MAINTENANCE Final Result from Last 3 Months or Most Recently Relevant to Health Maintenance Insurance [facility] H[facility]/PPO Address: [address] [address] [place] [address] [facility]/PPO Address: [facility] [address] [place] [address] Care Teams Media Producer Relationship Specialty Start Date End Date Angela Grissom PA [address] [place], [place] [id number] PCP - General Internal Medicine 05/23/19
--- OUTSIDE RECORDS SUMMARY | 2024-12-31 13:52 | XMS_ITS | Encounter Summary ---
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 us Historical Provider Final Res ult documented in this encounter Visit Diagnoses Not on filedocumented in this encounter Care Teams Junior Php Developer Relationship Specialty Start Date End Date Angela Grissom PA [address] [place] [address] PCP - General Internal Medicine 05/23/19 documented as of this encounter
--- OUTSIDE RECORDS SUMMARY | 2024-12-31 13:52 | XMS_ITS | Encounter Summary ---
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 us Historical Provider Final Res ult documented in this encounter Visit Diagnoses Not on filedocumented in this encounter Care Teams Metal Worker Relationship Specialty Start Date End Date Angela Grissom PA [address] [place] [address] PCP - General Internal Medicine 05/23/19 documented as of this encounter
== END 2024-12-31 13:47 | disposition home or self-care (01) ==
PROVIDERS: PCP Physician Assistant; Visit Provider Physician Assistant
DX: Z78.0 Asymptomatic menopausal state (principal); M85.88 Other specified disorders of bone density and structure, other site; M85.852 Other specified disorders of bone density and structure, left thigh; M85.851 Other specified disorders of bone density and structure, right thigh
CPT/HCPCS: 77080

== ENCOUNTER 2025-01-16 07:18 | Outpatient (CLI) | payer OTHER, SELFPAY ==
--- NOTE | ~2025-01-16 | MM_ITS ---
EXAMINATION: MM screening edinson BI w re HISTORY: Screening TECHNIQUE: Craniocaudal and mediolateral oblique 3-D tomosynthesis images were obtained and synthetic 2-D images were generated. CAD analysis was submitted and interpreted. COMPARISON: Comparison to multiple prior studies sequentially, with oldest reviewed study dated , 07/11/2018 BREAST PARENCHYMAL COMPOSITION: The breasts are heterogeneously dense, which may obscure small masses. FINDINGS: There is no evidence of suspicious mass, calcification, or architectural distortion to suggest malignancy in either breast. IMPRESSION: 1. No mammographic evidence of malignancy. 2. Recommend routine screening mammography in one year. BI-RADS Category 1: Negative Reviewed, dictated and finalized at location B.
== END 2025-01-16 07:19 | disposition home or self-care (01) ==
LOC: ANHFOHIMG 07:19
PROVIDERS: PCP Physician Assistant; Visit Provider Physician Assistant
DX: Z12.31 Encounter for screening mammogram for malignant neoplasm of breast (principal)
CPT/HCPCS: 77063; 77067

== ENCOUNTER 2025-01-23 12:02 | Outpatient (CLI) | payer OTHER, SELFPAY ==
--- OUTSIDE RECORDS SUMMARY | 2025-01-22 15:00 | XMS_ITS | Encounter Summary ---
Author Organization [facility] Healthcare Address [address] [place] [address] Care Team Providers Care Games Dealer Name Role Phone Angela Grissom Primary Care Provider +1- [phone] Reason for Visit * Reason Comments Follow-up Started Effexor. Sta nirmal she feels good and it is helping but has some small side effects. Has noticed muscle twitching occasional and has times that she has problems sleeping. States she feels like the symptoms are lessening the longer she is on it. Encounter Details Date Type Department Care Team (Late st Contact Info) Description 01/22/2025 3:00 PM CDT Office Visit [facility] Medical Group Family Medicine [address] [place] [address] Angela Grissom PA [address] [place] [address] BMI 26.0-26.9,adult (Primary Dx); Menopause; Osteopenia, unspecified location; Family history of factor V Leiden mutation Social History Tobacco Use Types Packs/Day Years Used Date Smoking Tobacco: Never Passive Smoke Exposure: Never Smokeless Tobacco: Never Alcohol Use Standard Drinks/Week Comments Never 0 (1 standard drink = 0.6 oz pur e alcohol) PHQ-2 Answer Date Recorded PHQ-2 Total Score (If total score is 3 or more points, staff should administer the PHQ-9) 0 01/22/2025 AUDIT-C Answer Date Recorded Q1: How often do you have a drink containing alcohol? Never 01/22/2025 Q2: How many drinks containi ng alcohol do you have on a typical day when you are drinking? Patient does not drink Q3: How often do you have si x or more drinks on one occasion? 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 Not on file Not on file documented as of this encounter Last Filed Vital Signs Vital Sign Reading Time Taken Comments Blood Pressure 122/70 01/22/2025 3:10 PM CDT Pulse 72 01/22/2025 3:10 PM CDT Temperature 36.7 C (98.1 F) 01/22/2025 3:10 PM CDT Respiratory Rate - - Oxygen Saturation 98% 01/22/2025 3:10 PM CDT Inhaled Oxygen Concentration - - Weight 76.9 kg (169 lb 8 oz) 01/22/2025 3:10 PM CDT Height - - Body Mass Index 26.55 12/12/2024 7:11 AM CDT documented in this encounter Functional Status * AUDIT-C Score Answer Date of Assessment Author 0 01/22/2025 3:08 PM CDT Dian Mckeon LPN * Question Answer Date of Assessment Author Q1: How often do you have a drink containing alcohol? Never 01/22/2025 3:08 PM CDT Dian Mckeon LPN Q2: How many drinks containing alcohol do you have on a typical day when you are drinking? Patient does not drink 01/22/2025 3:08 PM CDT Dian Mckeon LPN Q3: How often do you have six or more drinks on one occasion? Never 01/22/2025 3:08 PM LUCILAT Dian Mckeon LPN documented as of this encounter Ordered Prescriptions Prescription Sig Dispense Quantity Refills Last Filled Start Date End Date venlafaxine XR (EFFEXOR-XR) 75 mg 24 hr capsuleIndications :Menopause Take 1 capsule (75 mg total) by mouth daily Take with food. Start after the 37.5 dose/rx 90 capsule 1 01/22/2025 documented in this encounter Miscellaneous Notes * Assessment & Plan Note - Dian Mckeon LPN - 01/22/2025 3:13 PM CDT Associated Problem(s): BMI 26.0-26.9,adult Weight/BMI is in healthy range. Continue healthy lifestyle to maintain. documented in this encounter Plan of Treatment Scheduled Orders Name Type Priority Associated Diagnoses Orde r Schedule Calcium, ionized Lab Routine Osteopenia, unspecified location Expected: 01/25/2025, Expires: 01/22/2026 PTH Lab Routine Osteopenia, unspecified location Expected: 01/25/2025, Expires: 01/22/2026 Factor V Leiden Lab Routine Family history of factor V Leiden mutation Expected: 01/25/2025, Expires: 01/22/2026 Comprehensive metabolic panel Lab Routine Osteopenia, unspecified location Expected: 01/22/2025, Expires: 01/22/2026 documented as of this encounter Visit Diagnoses Diagnosis BMI 26.0-26.9,adult- Primary Menopause Symptomatic menopausal or female climacteric states Osteopenia, unspecified location Family history of factor V Leiden mutation Family history of other blood disorders documented in this encounter Discontinued Medications Medication Sig Discontinue Reason Start Date End Da te venlafaxine XR (EFFEXOR-XR) 37.5 mg 24 hr capsule Take 1 capsule (37.5 mg total) by mouth daily 12/12/2024 01/22/2025 venlafaxine XR (EFFEXOR-XR) 75 mg 24 hr capsule Take 1 capsule (75 mg total) by mouth daily Take with food. Start after the 37.5 dose/rx Reorder 12/12/2024 01/22/2025 documented as of this encounter Care Teams Games Dealer Relationship Specialty Start Date End Date Angela Grissom PA [address] [facility] [address] [place] [address] PCP - General Internal Medicine 05/23/19 documented as of this encounter
--- OUTSIDE RECORDS SUMMARY | 2025-01-23 12:06 | XMS_ITS | Encounter Summary ---
Author Organization 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
--- OUTSIDE RECORDS SUMMARY | 2025-01-23 12:06 | XMS_ITS | Encounter Summary ---
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
--- OUTSIDE RECORDS SUMMARY | 2025-01-23 12:06 | XMS_ITS | Encounter Summary ---
Author Organization [facility] Healthcare Address [address] [place] [address] Care Team Providers Care Early Interventionist Name Role Phone Angela Grissom Primary Care Provider +1- [phone] Encounter Details Date Type Department Care Team (Late st Contact Info) Description 01/08/2025 Results Follow-Up [facility] Medical Group Family Medicine [address] [place] [address] Angela Grissom PA [address] [place] [address] Dexa Axial Skeleton Bone Density 1 or 2 Site, Screening Mammogram Bilateral W Zeyad Social History Tobacco Use Types Packs/Day Years [...] on file 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 documented in this encounter Plan of Treatment Not on file documented as of this encounter Visit Diagnoses Not on filedocumented in this encounter Care Teams Early Interventionist Relationship Specialty Start Date End Date Angela Grissom PA [address] [facility] [address] [place] [address] PCP - General Internal Medicine 05/23/19 documented as of this encounter
--- OUTSIDE RECORDS SUMMARY | 2025-01-23 12:06 | XMS_ITS | Clinical Summary ---
Author Organization [facility] [address] [facility] Address [address] [place] [address] Care Team Providers Care Certified Hand Therapist Name Role Phone Angela Grissom Primary Care Provider +1- [phone] Allergies Active Allergy Reactions Criticality Noted Date Comments Promethazine Agitation Low 07/31/2019 Medications coenzyme Q10 200 mg capsule Take 1 capsule (200 mg total) by mouth daily Active cholecalciferol (VITAMIN D-3) 5,000 unit capsule Take 1 capsule (5,000 Units total) by mouth daily Active rosuvastatin (CRESTOR) 10 mg tabletIndications :Mixed hyperlipidemia TAKE 1 TABLET(10 MG) BY MOUTH DAILY 90 tablet 1 04/08/20 24 Active calcium carbonate (OS-BRIAN) 650 mg (260 mg elemental) tablet,chewable 260 mg Acti ve dicyclomine (BENTYL) 10 mg capsule Take 1 capsule (10 mg total) by mouth 4 (four) times a day before meals and nightly 60 capsule 12/13/19 25 Active venlafaxine XR (EFFEXOR-XR) 75 mg 24 hr capsuleIndication s:Menopause Take 1 capsule (75 mg total) by mouth daily Take with food. Start after the 37.5 dose/rx 90 capsule 1 01/23/20 25 Active venlafaxine XR (EFFEXOR-XR) 37.5 mg 24 hr capsule Take 1 capsule (37.5 mg total) by mouth daily 30 capsule 12/13/19 25 025 Discontinued venlafaxine XR (EFFEXOR-XR) 75 mg 24 hr capsule Take 1 capsule (75 mg total) by mouth daily Take with food. Start after the 37.5 dose/rx 90 capsule 12/13/19 025 Discontinued(Re order) Active Problems Problem Noted Date Diagnosed Date [...] cancer screening options. Prefers colonoscopy done at [employer] as she is employed there. Referral placed [...] 06/06/2022 Assessment & Plan (06/06/2022 9:21 AM SCHOOL BUS TECHNICIAN): Persistent abdominal bloating gas and sometimes pain. [...] visit. BMI 26.0-26.9,adult 08/26/2021 Assessment & Plan (01/22/2025 3:13 PM CDT): Weight/BMI is in healthy range. Continue healthy lifestyle to maintain. Assessment & Plan (12/12/2024 7:16 AM CDT): [...] maintain. Assessment & Plan (06/06/2022 9:22 AM SCHOOL BUS TECHNICIAN): Weight/BMI is in healthy range. Continue healthy [...] needed. Assessment & Plan (06/06/2022 9:20 AM SCHOOL BUS TECHNICIAN): Encouraged patient to follow low fat/low chol [...] 08/29/2022 Assessment & Plan (06/06/2022 9:22 AM SCHOOL BUS TECHNICIAN): Reviewed importance of colon cancer screening. Discussed the options for screening including colonoscopy versus Cologuard. She declined. Wants to discuss again at her next visit. Cervical cancer screening 08/26/2021 Assessment & Plan (08/26/2021 9:30 AM CDT): Pap obtained with discussion on routine follow-up. She has had history of a LEEP so has been doing annual exams. Her battery container finishing hand was Dr. Cruz Diabetes mellitus screening 08/31/2020 08/26/2021 Assessment & Plan (08/31/2020 12:26 AM CDT): Check labs Lipid screening 08/31/2020 08/26/2021 Assessment & Plan (08/31/2020 12:25 AM CDT): Check labs BMI 25.0-25.9,adult 08/20/2020 08/27/19 Assessment & Plan (08/20/2020 9:24 AM CDT): Weight/BMI is in healthy range. Continue healthy lifestyle to maintain. BMI 25.0-25.9,adult 07/31/2019 08/21/19 21 Assessment & Plan (07/31/2019 8:12 AM CDT): Weight/BMI is in healthy range. Continue healthy lifestyle to maintain. Annual physical exam 07/31/2019 025 Assessment & Plan (08/29/2022 6:39 PM CDT): Encouraged healthy lifestyle, good nutrition and exercise. Encouraged Calcium and Vitamin D and weight bearing exercise for bone health. Reviewed immunizations Reviewed age appropirate screenings. Assessment & Plan (06/06/2022 9:20 AM SCHOOL BUS TECHNICIAN): Encouraged healthy lifestyle, good nutrition and exercise. [...] Encounters Date Type Department Care Team Description 01/22/2025 3:00 PM CDT Office Visit [address] [place] [address] Angela Grissom PA BMI 26.0-26.9,adult (Primary Dx); Menopause; Osteopenia, unspecified location; Family history of factor V Leiden mutation 01/08/2025 Results Follow-Up [address] [place] [address] Angela Grissom PA Dexa Axial Skeleton Bone Density 1 or 2 Site, Screening Mammogram Bilateral W Zeyad 12/12/2024 7:00 AM CDT Office Visit [address] [place] [address] Angela Grissom PA Vasomotor symptoms due [...] on file Legal Sex Female 9:05 PM SCHOOL BUS TECHNICIAN Gender Identity Not on file Sexual Orientation Not on file 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 Not on file Not on file Obstetrics History Last Filed Vital Signs Vital Sign Reading Time Taken Comments Blood Pressure 122/70 01/22/2025 3:10 PM CDT Pulse 72 01/22/2025 3:10 PM CDT Temperature 36.7 C (98.1 F) 01/22/2025 3:10 PM CDT Respiratory Rate 18 06/06/2022 8:28 AM SCHOOL BUS TECHNICIAN Oxygen Saturation 98% 01/22/2025 3:10 PM CDT Inhaled Oxygen Concentration - - Weight 76.9 kg (169 lb 8 oz) 01/22/2025 3:10 PM CDT Height 170.2 cm (5' 7) 12/12/2024 7:11 AM CDT Body Mass Index 26.55 12/12/2024 7:11 AM CDT Plan of Treatment Health Maintenance Due Date Last Done Comments Hepatitis C Screening 1976 Hepatitis B Screening 1994 Covid-19 Vaccine ( season) 2025 06/02/2020, 05/12/2020 Influenza Vaccine (#1) 2025 , 02/05/2022, 02/05/2021, Additional history exists Regular Well Visit/Exam 18-64 09/02/2025 09/02/2024, 08/31/2023, 06/06/2022, Additional history exists Breast Cancer Screening-Mammogram 01/21/2026 01/21/2025, 12/26/2023, 12/22/2022, Additional history exists Depression Screening 01/22/2026 01/22/2025, 09/02/2024, 08/31/2023, Additional history exists Cervical Cancer Screening 08/30/2028 08/31/2023, Colon Cancer Screening-Colonoscopy 11/21/2032 11/21/2022 DTaP/Tdap/Td Vaccine (3 - Td or Tdap) 08/30/2033 08/31/2023, 07/06/2013 Pneumococcal vaccine <65 Aged Out No longer eligible based on patient's age to complete this topic Procedures Procedure Name Priority Date/Time Associated Diagnosis Comments SCREENING MAMMOGRAM BILATERAL W ZEYAD Schedule Routine, Read Routine (OP Routine) 01/21/2025 11:34 AM CDT Breast cancer screening by mammogram DEXA AXIAL SKELETON BONE DENSITY 1 OR MORE SITES Schedule Routine, Read Routine (OP Routine) 01/08/2025 4:01 PM CDT Menopause PAP AND HPV, REFLEX TO HPV GENOTYPES Routine 08/31/2023 8:26 AM CDT Cervical cancer screening HM COLONOSCOPY Routine 11/21/2022 10:14 AM CDT from Last 3 Months or Most Recently Relevant to Health Maintenance Results * Screening Mammogram Bilateral W Zeyad (01/21/2025 11:34 AM CDT) Anatomical Region Laterality Modality Breast Bilateral Mammography Impressions 01/21/2025 11:34 AM CDT There is no mammographic evidence of malignancy. A 1 year screening mammogram is recommended. Bi-Rads Category 1: Negative Angela [facility] MAMMO PROCEDURES Final Result * Dexa Axial Skeleton Bone Density 1 or 2 Site (01/08/2025 4:01 PM CDT) Anatomical Region Laterality Modality Body N/A Radiographic Elva ging Impressions 01/08/2025 4:01 PM CDT The patient has low bone mass,based on the total spine t-score. The patient has an estimated ten-year risk of hip fracture of 0.5% and an estimated ten year risk factor of major fracture of 4.4% based on the WHO FRAX algorithm. Angela [facility] DXA PROCEDURES Final R esult * Pap and HPV, reflex to HPV Genotypes (08/31/2023 8:26 AM CDT) CLINICAL INFORMATION: [facility] Comment:CERVICAL CANCER SCRE ENING LMP [facility] Comment:TRACI SO APPX [address] [facility] Comment:PREV NEG PAP Prev. Bx [facility] Comment:LEEP IN 2012 PAPS NO RMAL SINCE SOURCE: [facility] Comment:Cervix, Endocervix Pap, specimen adequacy [facility] Comment: Satisfactory for evaluation. Endocervical/transformation zone component present. HPV interp [facility] Comment: Cytology Results: Negative for intraepithelial lesion or malignancy. COMMENTS [facility] Comment: This Pap test has been evaluated with computer assisted technology. Estate Conservator [facility] Comment: MVB, CT(ASCP) CT Screening Location: [place] [address] [place] [address] Comment [facility] Comment: EXPLANATORY NOTE: The Pap is a [...] High Risk E6/E7 Not Detected NOT DETECTED [facility]elago /Maryuri [facility] Comment: Not Detected High Risk HPV types (16,18,31,33,35,39,45,51,52, 56,58,59,66,68) were not detected. Other HPV types which cause anogenital lesions may be present. The significance of the other types of HPV in malignant processes has not been established. Methodology: Real Time PCR Thin prep 08/31/2023 8:26 AM CDT 09/06/2023 11:48 AM CDT Angela [facility]TOLOGY ORDERABLES Fi nal Result [facility] [address] [place] [address] Yelago/Maryuri [facility] [address] [place] * HM COLONOSCOPY (11/21/2022 10:14 AM CDT) Historical Provider HEALTH MAINTENANCE Final Result from Last 3 Months or Most Recently Relevant to Health Maintenance Insurance [facility] Care Teams Certified Hand Therapist Relationship Specialty Start Date End Date Angela Grissom PA [address] [place] [address] PCP - General Internal Medicine 05/23/19
[2025-01-23 14:00] LABS: Alanine Aminotransferase 34 U/L (6-35); Albumin Level 4.6 g/dL (3.5-5.1); Alkaline Phosphatase 102 U/L (38-126); Anion Gap 6 mmol/L (4-12); Aspartate Amino Transferase 43 U/L (14-36); Bilirubin,Total 0.4 mg/dL (0.2-1.3); Blood Urea Nitrogen 14 mg/dL (7-17); CRP < 0.5 mg/dL (<1.0); Calcium 8.9 mg/dL (8.4-10.2); Carbon Dioxide 29 mmol/L (22-30); Chloride 101 mmol/L (98-107); Estimated Glomerular Filt Rate > 60; Glucose 90 mg/dL (65-110); Potassium 3.4 mmol/L (3.4-5.0); Sodium 136 mmol/L (137-145); Total Protein 8.3 g/dL (6.3-8.2)
[2025-01-23 15:46] LABS: Parathyroid Intact 34.7 pg/mL (14.5-75.2)
[2025-01-24 18:07] LABS: Calcium, Ionized 5.0 mg/dL (4.5-5.6)
[2025-01-27 19:08] LABS: Calprotectin, Fecal 17 ug/g (0-120)
[2025-01-28 02:07] LABS: Pancreatic Elastase, Fecal >800 (>200)
[2025-01-28 02:07] LABS: F416-IgE Tri a 19(w-5 gliadin) <0.10 kU/L (Class 0)
== END 2025-01-23 12:03 | disposition home or self-care (01) ==
PROVIDERS: PCP Physician Assistant; Referring Provider Physician Assistant; Visit Provider Nurse Practitioner
DX: K58.0 Irritable bowel syndrome with diarrhea (principal); K90.9 Intestinal malabsorption, unspecified; G43.909 Migraine, unspecified, not intractable, without status migrainosus; M85.80 Other specified disorders of bone density and structure, unspecified site; Z83.2 Family history of diseases of the blood and blood-forming organs and certain disorders involving the immune mechanism
CPT/HCPCS: 36415; 80053; 81241; 82330; 82653; 83970; 83993; 85652; 86003; 86140

== ENCOUNTER 2025-01-25 08:00 | Outpatient (CLI) | payer OTHER, SELFPAY ==
--- OUTSIDE RECORDS SUMMARY | 2025-01-25 08:04 | XMS_ITS | Encounter Summary ---
Author Organization 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
--- OUTSIDE RECORDS SUMMARY | 2025-01-25 08:04 | XMS_ITS | Encounter Summary ---
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
--- OUTSIDE RECORDS SUMMARY | 2025-01-25 08:04 | XMS_ITS | Encounter Summary ---
Author Organization [facility] Healthcare Address [address] [place] [address] Care Team Providers Care Tube Handler Name Role Phone Angela Grissom Primary Care Provider +1- [phone] Encounter Details Date Type Department Care Team (Late st Contact Info) Description 01/08/2025 Results Follow-Up [facility] Medical Group Family Medicine 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
== END 2025-01-25 08:01 | disposition home or self-care (01) ==
LOC: ANHLAB 08:02
PROVIDERS: PCP Physician Assistant; Visit Provider Nurse Practitioner
DX: K58.0 Irritable bowel syndrome with diarrhea (principal); K90.9 Intestinal malabsorption, unspecified; G43.909 Migraine, unspecified, not intractable, without status migrainosus
CPT/HCPCS: 83520

== ENCOUNTER 2025-04-26 10:13 | Emergency (ER) | payer OTHER, SELFPAY ==
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
[2025-04-26 10:18] VITALS: BP 138/85; PULSE 83; RESP 16; TEMP 36.3; O2SAT 99
--- OUTSIDE RECORDS SUMMARY | 2025-04-26 10:18 | XMS_ITS | Encounter Summary ---
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
--- OUTSIDE RECORDS SUMMARY | 2025-04-26 10:18 | XMS_ITS | Encounter Summary ---
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
== END 2025-04-26 10:33 | disposition home or self-care (01) ==
PROVIDERS: Emergency Provider Nurse Practitioner; PCP Physician Assistant
DX: M94.0 Chondrocostal junction syndrome [Tietze] (principal)
CPT/HCPCS: 99211; G0463

== ENCOUNTER 2025-04-30 07:08 | Outpatient (CLI) | payer OTHER, SELFPAY ==
--- OUTSIDE RECORDS SUMMARY | 2025-04-30 07:10 | XMS_ITS | Encounter Summary ---
Author Organization [facility] Healthcare Address [address] [place] [address] Care Team Providers Care Reconcilement Clerk Name Role Phone Angela Grissom Primary Care Provider +1- [phone] Encounter Details Date Type Department Care Team (Late st Contact Info) Description 04/28/2025 Telephone [facility] Family Medicine [address] [place] [address] Angela Grissom PA [address] [facility] [email or web address] [place] [address] Social History Tobacco Use Types Packs/Day Years [...] on file Legal Sex Female 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 Pt stated she is doing better today. She stated she will call if it does not continue to get better. OPEDIC RN * Telephone Encounter - Yamilka Goff - 04/28/2025 11:00 AM CST Pt was seen at [facility] on 04/26/25 for: Chest Pain See Attached Notes Staff will f/u with pt OPEDIC RN documented in this encounter Plan of Treatment Not on file documented as of this encounter Visit Diagnoses Not on filedocumented in this encounter Care Teams Reconcilement Clerk Relationship Specialty Start Date End Date Angela Grissom PA [address] [address] PCP - General Internal Medicine 05/23/19 documented as of this encounter
--- OUTSIDE RECORDS SUMMARY | 2025-04-30 07:10 | XMS_ITS | Encounter Summary ---
Author Organization 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
--- OUTSIDE RECORDS SUMMARY | 2025-04-30 07:10 | XMS_ITS | Encounter Summary ---
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
[2025-04-30 07:44] LABS: Alanine Aminotransferase 160 U/L (6-35); Albumin Level 4.7 g/dL (3.5-5.1); Alkaline Phosphatase 89 U/L (38-126); Aspartate Amino Transferase 92 U/L (14-36); Bilirubin,Total 0.4 mg/dL (0.2-1.3); Total Protein 8.2 g/dL (6.3-8.2)
== END 2025-04-30 07:09 | disposition home or self-care (01) ==
LOC: ANHLAB 07:09
PROVIDERS: PCP Physician Assistant; Visit Provider Nurse Practitioner
DX: R79.89 Other specified abnormal findings of blood chemistry (principal)
CPT/HCPCS: 36415; 80076